=== PATIENT | female | born 1990 | race American Indian/Alaskan Native ===

== ENCOUNTER 2020-03-11 11:33 | Emergency (ER) | payer MEDICAID ==
[2020-03-11 12:23] LABS: BUN/Creatinine Ratio 13; Blood Urea Nitrogen 10 mg/dL (7-17); Calcium 9.7 mg/dL (8.4-10.2); Hemolysis Index 5
[2020-03-11 12:41] LABS: Eosinophils # (Auto) 0.1 K/mm3 (0.0-0.4); Eosinophils % (Auto) 1.7 % (0.0-4.3); Hematocrit 41.6 % (30.3-42.9); Hemoglobin 13.7 gm/dl (10.1-14.3); Lymphocytes # (Auto) 1.1 K/mm3 (1.2-5.4); Lymphocytes % (Auto) 30.1 % (13.4-35.0); Mean Corpuscular HGB Conc 33 % (30-34); Mean Corpuscular Volume 97 fl (79-97); Monocytes # (Auto) 0.4 K/mm3 (0.0-0.8); Monocytes % (Auto) 12.2 % (0.0-7.3); Platelet Count 306 K/mm3 (140-440); Red Blood Count 4.29 M/mm3 (3.65-5.03); Red Cell Distribution Width 13.2 % (13.2-15.2)
--- NOTE | 2020-03-11 12:44 | Emergency Department Report ---
HPI - General Chief Complaint: Psych Time Seen by Provider: 03/11/20 12:34 - HPI HPI: Room 12 The patient is a 29-year-old female present with a chief complaint of suicidal ideation. The patient was being seen by her therapist during the session report wayne told her therapist that she wanted to hurt her self with a knife. Patient acknowledges this but denies any attempts at harming herself. Therapist placed the patient on a 1013 document" she admits to suicidal ideation with plan to stab herself." And sent the patient to the ED for further evaluation ED Past Medical Hx - Past Medical History Previous Medical History?: Yes Hx Hypertension: Yes Additional medical history: cognitive delayed,behavior disorder - Surgical History Past Surgical History?: No - Family History Family history: no significant - Social History Smoking Status: Never Smoker Substance Use Type: None (Denies illicit drug use) - Medications Home Medications: Home Medications Medication Instructions Recorded Confirmed Last Taken Type ARIPiprazole [Aripiprazole] 15 mg PO BID 04/12/16 02/08/20 Unknown History amLODIPine [Norvasc] 5 mg PO DAILY 04/12/16 02/08/20 Unknown History lamoTRIgine [LaMICtal Odt] 50 mg PO QDAY 04/12/16 02/08/20 Unknown History ED Review of Systems ROS: Stated complaint: MH Other details as noted in HPI Constitutional: no symptoms reported Respiratory: no symptoms reported Endocrine: no symptoms reported Psychiatric: suicidal thoughts Physical Exam - Physical Exam Vital Signs: Vital Signs 03/11/20 11:39 Temperature 97.8 F Pulse Rate 80 Respiratory 16 Rate Blood Pressure 154/100 [Right] O2 Sat by Pulse 100 Oximetry Physical Exam: GENERAL: The patient is well-nourished female lying on stretcher not appearing to be in acute distress. [] HEENT: Normocephalic. Atraumatic. Extraocular motions are intact. Patient has moist mucous membranes. NECK: Supple. Trachea midline CHEST/LUNGS: Clear to auscultation. There is no respiratory distress noted. HEART/CARDIOVASCULAR: Regular. There is no tachycardia. There is no gallop rub or murmur. ABDOMEN: Abdomen is soft, nontender. Patient has normal bowel sounds. There is no abdominal distention. SKIN: There is no rash. There is no edema. There is no diaphoresis. NEURO: The patient is awake and alert. The patient is cooperative. The patient has normal speech MUSCULOSKELETAL: There is no evidence of acute injury. ED Course Vital Signs 03/11/20 11:39 Temperature 97.8 F Pulse Rate 80 Respiratory 16 Rate Blood Pressure 154/100 [Right] O2 Sat by Pulse 100 Oximetry ED Medical Decision Making - Lab Data Result diagrams: 03/11/20 11:47 03/11/20 11:47 - Differential Diagnosis Suicidal ideation Critical care attestation.: If time is entered above; I have spent that time in minutes in the direct care of this critically ill patient, excluding procedure time. ED Disposition Clinical Impression: Suicidal ideation Disposition: DC/TX-65 PSY HOSP/PSY UNIT Is pt being admited?: No Does the pt Need Aspirin: No Condition: Stable
[2020-03-12 04:33] LABS: Bacteria,Urine 1+ /HPF (Negative); Bilirubin,Urine NEG (Negative); Blood,Urine MOD (Negative); Color,Urine Yellow (Yellow); Mucus,Urine 1+ /HPF; Protein,Urine <15 mg/dL mg/dL (Negative); Urobilinogen,Urine < 2.0 mg/dL (<2.0)
[2020-03-12 04:40] LABS: Amphetamine Screen,Urine PRESUMPTIVE NEGATIVE; Benzodiazepines Screen,Urine PRESUMPTIVE NEGATIVE; Cannabinoid Screen,Urine PRESUMPTIVE NEGATIVE; Cocaine Screen,Urine PRESUMPTIVE NEGATIVE; Methadone Screen,Urine PRESUMPTIVE NEGATIVE; Opiate Screen,Urine PRESUMPTIVE NEGATIVE
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
[2020-03-12] MEDS: DIVALPROEX DR 125 MG TAB PO SCH ×2 (12:41→21:44)
[2020-03-12] MEDS: clonazePAM 0.5 MG TAB PO SCH ×2 (12:41→21:43)
[2020-03-12] MEDS: risperiDONE 0.25 MG TAB PO SCH ×2 (12:41→21:44)
[2020-03-12] MEDS ORDERED: traZODone 50 MG TAB PO SCH (22:00)
[2020-03-13 10:06] VITALS: BP 154/99
--- NOTE | 2020-03-13 11:30 | Progress Note ---
Subjective - Reason for Consult Consult date: 03/13/20 Reason for consult: homicidal - Chief Complaint Chief complaint: The patient's medical record was reviewed and the patient's progress was reviewed with the nursing staff. The nurse note states the patient is resting quietly on recliner, resp even and non labored, no acute distress noted, no complaints of voiced, no behaviors or s/s of self harm noted, ambulates as needed to restroom without difficulty, able to make needs known, calm and cooperative at this time. During my interview with the patient today, she is lying down. She is a/ox 3. She is calm and cooperative. The patient says "I got a headache and ready to go home" when asked how she was feeling. She says she slept "good." The patient denies SI/HI. She states, "I was just mad." The patient also denies hallucinations of any kind. I spoke with the patient's caregiver, Mrs. Barber about the patient's progress and discharge plan. Informed the caregiver that the patient no longer met criteria for inpatient. She was comfortable with the arrangement. She says Neeta goes through theses episodes where she is impulsive and then she calms right back down. Advised her that if SI/HI are to arise to call crisis hotline, 911 or bring the patient back to the ER REVIEW OF SYSTEMS Constitutional: Negative for weight loss ENT: Negative for stridor Respiratory: Negative for cough or hemoptysis All other systems reviewed and are negative MENTAL STATUS EXAMINATION General Appearance: Dressed appropriately. Behavior: calm and cooperative Mood: depressed Affect and affective range: Congruent with stated mood Thought Process: goal directed Speech: normal tone and pace Thought content Suicidal Ideation: Denies Homicidal Ideation: Denies Hallucinations: Denies Delusions: None elicited Insight and Judgment: Limited Memory/Cognition: Limited Attention: Normal Orientation: Alert, oriented Assessment Bipolar Disorder PLAN D/C 1013 Risperidone 0.25mg po BID Depakote DR 125mg po BID Trazodone 50mg po qhs Klonopin 0.25mg po BID Sitter: Defer to primary Medical: Per primary Disposition: Do not recommend acute inpatient psychiatric treatment. The patient may d/c with caregiver once medically clear. The caregiver understands that if behaviors of self harm or homicidal behaviors return she should seek immediate assistance by calling crisis team, 911 or ER. The business employment specialist to further discuss safety plan The patient is to follow up with primary or outpatient psych in 7 to 14 days upon discharge. Will sign off. Thank you for this consult. Mental Status Exam - Vital signs Last Vital Signs Temp 97.8 F 03/13/20 10:04 Pulse 82 03/13/20 10:04 Resp 20 03/13/20 10:04 BP 154/99 03/13/20 10:04 Pulse Ox 98 03/13/20 10:04
[2020-03-13] MEDS: risperiDONE 0.25 MG TAB PO SCH (11:37)
[2020-03-13] MEDS: clonazePAM 0.5 MG TAB PO SCH (11:37)
[2020-03-13] MEDS: DIVALPROEX DR 125 MG TAB PO SCH (11:37)
== END 2020-03-13 13:44 | disposition home or self-care (01) ==
LOC: ED 11:33
DX: R45.851 Suicidal ideations (principal); I10 Essential (primary) hypertension; Z79.899 Other long term (current) drug therapy
CPT/HCPCS: 36415; 80048; 80307; 80320; 81001; 85025; G0480

== ENCOUNTER 2020-08-25 09:43 | Emergency (ER) | payer MEDICAID ==
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
[2020-08-25 11:31] LABS: Basophils # (Auto) 0.1 K/mm3 (0.0-0.1); Basophils % (Auto) 1.1 % (0.0-1.8); Eosinophils # (Auto) 0.1 K/mm3 (0.0-0.4); Eosinophils % (Auto) 1.8 % (0.0-4.3); Hematocrit 36.6 % (30.3-42.9); Hemoglobin 12.5 gm/dl (10.1-14.3); Lymphocytes # (Auto) 1.4 K/mm3 (1.2-5.4); Lymphocytes % (Auto) 25.7 % (13.4-35.0); Mean Corpuscular HGB Conc 34 % (30-34); Mean Corpuscular Volume 95 fl (79-97); Monocytes # (Auto) 0.5 K/mm3 (0.0-0.8); Monocytes % (Auto) 9.9 % (0.0-7.3); Platelet Count 304 K/mm3 (140-440); Red Blood Count 3.85 M/mm3 (3.65-5.03); Red Cell Distribution Width 12.4 % (13.2-15.2)
[2020-08-25 12:32] LABS: Alanine Aminotransferase 13 units/L (7-56); Albumin 4.4 g/dL (3.9-5); BUN/Creatinine Ratio 14; Blood Urea Nitrogen 13 mg/dL (7-17); Calcium 9.9 mg/dL (8.4-10.2); Hemolysis Index 23
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
[2020-08-25 13:17] LABS: Bilirubin,Urine NEG (Negative); Blood,Urine MOD (Negative); Color,Urine Straw (Yellow); Protein,Urine <15 mg/dL mg/dL (Negative); Urobilinogen,Urine < 2.0 mg/dL (<2.0)
[2020-08-25 13:26] LABS: HCG Qualitative,Urine Negative (Negative)
[2020-08-25 13:34] LABS: Amphetamine Screen,Urine Negative; Benzodiazepines Screen,Urine Negative; Cannabinoid Screen,Urine Negative; Cocaine Screen,Urine Negative; Methadone Screen,Urine Negative
[2020-08-25 15:33] LABS: Opiate Screen,Urine PRESUMPTIVE NEGATIVE
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
[2020-08-26] MEDS: DIVALPROEX DR 125 MG TAB PO SCH ×2 (10:30→22:20)
[2020-08-26] MEDS: risperiDONE 0.25 MG TAB PO SCH ×2 (10:30→22:20)
[2020-08-26] MEDS: traZODone 50 MG TAB PO SCH (22:20)
--- NOTE | 2020-08-27 09:18 | Progress Note ---
Subjective - Reason for Consult Consult date: 08/27/20 Reason for consult: homicidal thoughs - Chief Complaint Chief complaint: The patient was seen today, she is much more calm today. She denies wanting to hurt anybody. She says "I was mad yesterday." She denies hallucinations of any kind. The patient says "I feel better. I just been resting." REVIEW OF SYSTEMS Constitutional: Negative for weight loss ENT: Negative for stridor Respiratory: Negative for cough or hemoptysis All other systems reviewed and are negative MENTAL STATUS EXAMINATION General Appearance and Behavior: Age appropriate, good hygiene, wearing appropriate clothes, good eye contact, calm and cooperative Cooperation: Participating/engaged Psychomotor Behavior: Psychomotor normal Mood: okay Affect and affective range: congruent with mood. Thought Process: Goal directed Thought Content: None Speech: Normal rate, volume and rhythm Intellectual Functioning: Average Suicidal Ideation: Denies Homicidal Ideation: Denies Hallucinations: Denies Delusions: None elicited Impulse Control: Impaired Insight and Judgment: Limited insight and judgment Memory: Limited Attention: Normal Orientation: Alert, oriented. Assessment and Plan (1) Unspecified Mood Disorder Current Visit: Yes Status: Acute Treatment Plan d/c [address] 125mg po BID Risperidone 0.25mg po BID Trazodone 50mg po qhs Sitter: Defer to primary Medical: Per primary Disposition: Recommend acute psychiatric inpatient treatment Will follow. Thank you. Case staffed with Dr. Mc Mental Status Exam - Vital signs Last Vital Signs Temp 98.2 F 08/27/20 07:45 Pulse 95 H 08/27/20 07:45 Resp 18 08/27/20 07:45 BP 128/64 08/27/20 07:45 Pulse Ox 99 08/27/20 07:45
[2020-08-27] MEDS: DIVALPROEX DR 125 MG TAB PO SCH ×2 (11:51→22:08)
[2020-08-27] MEDS: risperiDONE 0.25 MG TAB PO SCH ×2 (11:52→22:08)
[2020-08-27] MEDS: traZODone 50 MG TAB PO SCH (22:08)
[2020-08-28] MEDS: DIVALPROEX DR 125 MG TAB PO SCH ×2 (10:28→21:30)
[2020-08-28] MEDS: risperiDONE 0.25 MG TAB PO SCH ×2 (10:28→21:30)
[2020-08-28] MEDS: traZODone 50 MG TAB PO SCH (21:30)
[2020-08-29] MEDS: risperiDONE 0.25 MG TAB PO SCH ×2 (10:15→21:52)
[2020-08-29] MEDS: DIVALPROEX DR 125 MG TAB PO SCH ×2 (10:16→21:52)
--- NOTE | 2020-08-29 11:33 | Progress Note ---
Subjective - Reason for Consult Consult date: 08/29/20 Reason for consult: MHE Requesting physician: DEBBI GREGORY - Chief Complaint Chief complaint: The patient was seen today, she is much more calm today. She denies wanting to h urt anybody. She says "I was mad yesterday." She denies hallucinations of any kind. The patient says "I feel better. I just been resting." REVIEW OF SYSTEMS Constitutional: Negative for weight loss ENT: Negative for stridor Respiratory: Negative for cough or hemoptysis All other systems reviewed and are negative MENTAL STATUS EXAMINATION General Appearance and Behavior: Age appropriate, good hygiene, wearing appropriate clothes, good eye contact, calm and cooperative Cooperation: Participating/engaged Psychomotor Behavior: Psychomotor normal Mood: okay Affect and affective range: congruent with mood. Thought Process: Goal directed Thought Content: None Speech: Normal rate, volume and rhythm Intellectual Functioning: Average Suicidal Ideation: Denies Homicidal Ideation: Denies Hallucinations: Denies Delusions: None elicited Impulse Control: Impaired Insight and Judgment: Limited insight and judgment Memory: Limited Attention: Normal Orientation: Alert, oriented. Assessment and Plan (1) Unspecified Mood Disorder Current Visit: Yes Status: Acute Treatment Plan MEDICATIONS: Risks, benefits and alternatives of medications discussed with the patient, questions answered and consent obtained from patient. PSYCHOTHERAPY: Supportive psychotherapy provided MEDICAL: Per primary team DELIRIUM PRECAUTIONS: Please re-orient patient frequently, keep lights on during the day, and minimize benzodiazepines and opiates as these medications could worsen patient's confusion. CLIENT STRATEGIST: DISPOSITION: Do? Do Not Recommend acute inpatient psychiatric hospitalization at this time. Case discussed with Dr. Mc who agrees with current disposition LEGAL STATUS: 1013 FOLLOW-UP: Will follow Thank you for the consult. Please contact with any questions and/or concerns. Mental Status Exam - Vital signs Last Vital Signs Temp 97.9 F 08/29/20 08:48 Pulse 78 08/29/20 08:48 Resp 18 08/29/20 09:10 BP 123/78 08/29/20 08:48 Pulse Ox 98 08/29/20 08:48
[2020-08-29] MEDS: traZODone 50 MG TAB PO SCH (21:52)
[2020-08-30] MEDS: risperiDONE 0.25 MG TAB PO SCH ×2 (11:41→21:46)
[2020-08-30] MEDS: DIVALPROEX DR 125 MG TAB PO SCH ×2 (11:41→21:46)
[2020-08-30] MEDS: traZODone 50 MG TAB PO SCH (21:46)
[2020-08-31] MEDS: risperiDONE 0.25 MG TAB PO SCH ×2 (09:49→22:15)
[2020-08-31] MEDS: DIVALPROEX DR 125 MG TAB PO SCH ×2 (09:49→22:14)
[2020-08-31] MEDS: traZODone 50 MG TAB PO SCH (22:14)
[2020-09-01] MEDS: risperiDONE 0.25 MG TAB PO SCH ×2 (10:05→22:22)
[2020-09-01] MEDS: DIVALPROEX DR 125 MG TAB PO SCH ×2 (10:05→22:22)
[2020-09-01] MEDS: traZODone 50 MG TAB PO SCH (22:22)
[2020-09-02] MEDS: DIVALPROEX DR 125 MG TAB PO SCH ×2 (10:24→22:00)
[2020-09-02] MEDS: risperiDONE 0.25 MG TAB PO SCH ×2 (10:24→22:00)
[2020-09-02] MEDS: traZODone 50 MG TAB PO SCH (22:00)
[2020-09-03] MEDS: risperiDONE 0.25 MG TAB PO SCH ×2 (11:39→21:37)
[2020-09-03] MEDS: DIVALPROEX DR 125 MG TAB PO SCH ×2 (11:39→21:37)
[2020-09-03] MEDS: traZODone 50 MG TAB PO SCH (21:37)
[2020-09-04] MEDS: risperiDONE 0.25 MG TAB PO SCH ×2 (10:25→22:29)
[2020-09-04] MEDS: DIVALPROEX DR 125 MG TAB PO SCH ×2 (10:25→22:29)
[2020-09-04] MEDS: traZODone 50 MG TAB PO SCH (22:29)
[2020-09-05] MEDS: DIVALPROEX DR 125 MG TAB PO SCH ×2 (09:44→22:39)
[2020-09-05] MEDS: risperiDONE 0.25 MG TAB PO SCH ×2 (09:44→22:39)
[2020-09-05] MEDS: traZODone 50 MG TAB PO SCH (22:39)
[2020-09-06] MEDS: risperiDONE 0.25 MG TAB PO SCH ×2 (11:00→22:56)
[2020-09-06] MEDS: DIVALPROEX DR 125 MG TAB PO SCH ×2 (11:00→22:56)
[2020-09-06] MEDS: traZODone 50 MG TAB PO SCH (22:56)
[2020-09-07] MEDS: DIVALPROEX DR 125 MG TAB PO SCH ×2 (10:14→21:31)
[2020-09-07] MEDS: risperiDONE 0.25 MG TAB PO SCH ×2 (10:14→21:31)
[2020-09-07] MEDS: traZODone 50 MG TAB PO SCH (21:31)
[2020-09-08] MEDS: DIVALPROEX DR 125 MG TAB PO SCH ×2 (10:40→21:54)
[2020-09-08] MEDS: risperiDONE 0.25 MG TAB PO SCH ×2 (10:40→21:54)
[2020-09-08] MEDS: traZODone 50 MG TAB PO SCH (21:54)
[2020-09-09] MEDS: DIVALPROEX DR 125 MG TAB PO SCH ×3 (10:35→23:03)
[2020-09-09] MEDS: risperiDONE 0.25 MG TAB PO SCH ×3 (10:35→23:04)
[2020-09-09] MEDS: traZODone 50 MG TAB PO SCH ×2 (20:46→23:04)
[2020-09-10] MEDS: DIVALPROEX DR 125 MG TAB PO SCH ×2 (10:15→22:00)
[2020-09-10] MEDS: risperiDONE 0.25 MG TAB PO SCH ×2 (10:15→22:00)
[2020-09-10] MEDS: traZODone 50 MG TAB PO SCH (22:00)
[2020-09-11] MEDS: DIVALPROEX DR 125 MG TAB PO SCH (10:18)
[2020-09-11] MEDS: risperiDONE 0.25 MG TAB PO SCH (10:18)
[2020-09-12] MEDS: risperiDONE 0.25 MG TAB PO SCH ×3 (05:53→22:45)
[2020-09-12] MEDS: DIVALPROEX DR 125 MG TAB PO SCH ×3 (05:53→22:45)
[2020-09-12] MEDS: traZODone 50 MG TAB PO SCH ×2 (05:53→22:45)
[2020-09-13] MEDS ORDERED: diphenhydrAMINE 25 MG CAP PO ONE (09:31)
[2020-09-13] MEDS: DIVALPROEX DR 125 MG TAB PO SCH ×2 (09:39→22:33)
[2020-09-13] MEDS: risperiDONE 0.25 MG TAB PO SCH ×2 (09:39→22:33)
[2020-09-13] MEDS: traZODone 50 MG TAB PO SCH (22:33)
[2020-09-14] MEDS: risperiDONE 0.25 MG TAB PO SCH ×2 (00:02→11:45)
[2020-09-14] MEDS: DIVALPROEX DR 125 MG TAB PO SCH ×2 (11:45→21:30)
[2020-09-14] MEDS: traZODone 50 MG TAB PO SCH (21:30)
[2020-09-15] MEDS: traZODone 50 MG TAB PO SCH (21:51)
[2020-09-15] MEDS: risperiDONE 0.25 MG TAB PO SCH (21:51)
[2020-09-15] MEDS: DIVALPROEX DR 125 MG TAB PO SCH (21:51)
[2020-09-16] MEDS: traZODone 50 MG TAB PO SCH (23:52)
[2020-09-16] MEDS: risperiDONE 0.25 MG TAB PO SCH (23:56)
[2020-09-16] MEDS: DIVALPROEX DR 125 MG TAB PO SCH (23:56)
[2020-09-17] MEDS: risperiDONE 0.25 MG TAB PO SCH (23:01)
[2020-09-17] MEDS: traZODone 50 MG TAB PO SCH (23:01)
[2020-09-17] MEDS: DIVALPROEX DR 125 MG TAB PO SCH (23:01)
[2020-09-18] MEDS: DIVALPROEX DR 125 MG TAB PO SCH (10:30)
[2020-09-18] MEDS: risperiDONE 0.25 MG TAB PO SCH (10:30)
[2020-09-19] MEDS: DIVALPROEX DR 125 MG TAB PO SCH (10:50)
[2020-09-19] MEDS: risperiDONE 0.25 MG TAB PO SCH (10:50)
[2020-09-20] MEDS: risperiDONE 0.25 MG TAB PO SCH ×3 (09:42→22:53)
[2020-09-20] MEDS: DIVALPROEX DR 125 MG TAB PO SCH ×3 (09:42→22:53)
[2020-09-20] MEDS: traZODone 50 MG TAB PO SCH ×2 (09:42→22:53)
[2020-09-21] MEDS: risperiDONE 0.25 MG TAB PO SCH ×2 (11:31→22:18)
[2020-09-21] MEDS: DIVALPROEX DR 125 MG TAB PO SCH ×2 (11:31→22:18)
[2020-09-21] MEDS: traZODone 50 MG TAB PO SCH (22:18)
[2020-09-22] MEDS: traZODone 50 MG TAB PO SCH (23:15)
[2020-09-22] MEDS: risperiDONE 0.25 MG TAB PO SCH (23:16)
[2020-09-22] MEDS: DIVALPROEX DR 125 MG TAB PO SCH (23:17)
[2020-09-23] MEDS ORDERED: DIVALPROEX DR 125 MG TAB ONE (13:06)
[2020-09-24] MEDS: DIVALPROEX DR 125 MG TAB PO SCH ×4 (11:49→23:47)
[2020-09-24] MEDS: risperiDONE 0.25 MG TAB PO SCH ×3 (11:49→23:46)
[2020-09-24] MEDS: traZODone 50 MG TAB PO SCH ×2 (22:45→23:45)
[2020-09-25] MEDS: DIVALPROEX DR 125 MG TAB PO SCH ×2 (10:57→22:30)
[2020-09-25] MEDS: risperiDONE 0.25 MG TAB PO SCH ×2 (10:57→22:30)
[2020-09-25] MEDS: traZODone 50 MG TAB PO SCH (22:30)
[2020-09-26] MEDS: risperiDONE 0.25 MG TAB PO SCH ×2 (10:15→22:33)
[2020-09-26] MEDS: DIVALPROEX DR 125 MG TAB PO SCH ×2 (10:15→22:33)
--- NOTE | 2020-09-26 19:47 | Event Note ---
Date: 09/26/20 The patient was evaluated in the emergency department for symptoms described in the history of present illness. He/she was evaluated in the context of the global COVID-19 pandemic, which necessitated consideration that the patient might be at risk for infection with the virus that causes COVID-19. Institutional protocols and algorithms that pertain to the evaluation of patients at risk for COVID-19 are in a state of rapid change based on information released by regulatory bodies including the CDC and federal and state organizations. These policies and algorithms were followed during the patient's care in the emergency department. Please note that these policies, procedures and recommendations changed on a rapid basis. Charge nurse has brought this patient to my attention, as she is reportedly ready for discharge. Patient was medically cleared during her initial ER evaluation. Psychiatric team recommended no acute inpatient psychiatric hospitalization. Patient appears to have a history of intellectual disability/delay, and is reportedly a [place] the [place]. Outpatient residential accommodations have been made for this patient, and the psychiatric team will refill her medications. The patient is resting comfortably in stretcher at this time, and in no acute distress. She denies physical pain at this time. She is recently had a negative Covid test. Patient does not appear to have an emergent medical condition present at this time which would preclude discharge. She can follow-up with an outpatient primary care doctor and/or therapist Vital Signs 08/25/20 08/25/20 08/25/20 10:15 13:10 20:15 Temperature 97.6 F 98 F 97.6 F Pulse Rate 83 79 77 Respiratory 18 16 18 Rate Blood Pressure 107/66 Blood Pressure 117/75 108/65 [Right] O2 Sat by Pulse 100 100 99 Oximetry 08/26/20 08/26/20 08/26/20 03:45 08:38 09:29 Temperature 99.3 F 98.0 F Pulse Rate 79 77 Respiratory 18 20 18 Rate Blood Pressure Blood Pressure 100/55 135/75 [Right] O2 Sat by Pulse 99 99 Oximetry 08/26/20 08/26/20 08/26/20 15:09 20:00 22:37 Temperature 98 F Pulse Rate 81 87 Respiratory 18 18 18 Rate Blood Pressure Blood Pressure 102/70 133/78 [Right] O2 Sat by Pulse 97 98 Oximetry 08/27/20 08/27/20 08/27/20 01:17 07:45 13:05 Temperature 98.0 F 98.2 F 97.7 F Pulse Rate 80 95 H 99 H Respiratory 20 18 18 Rate Blood Pressure Blood Pressure 130/70 128/64 118/70 [Right] O2 Sat by Pulse 99 99 100 Oximetry 08/27/20 08/28/20 08/28/20 19:30 08:00 17:00 Temperature 98 F 98.3 F 97.7 F Pulse Rate 91 H 99 H 80 Respiratory 16 Rate Blood Pressure Blood Pressure 133/81 139/79 133/86 [Right] O2 Sat by Pulse 98 99 Oximetry 08/28/20 08/29/20 08/29/20 20:25 02:23 08:48 Temperature 98.1 F 98.1 F 97.9 F Pulse Rate 76 71 78 Respiratory 18 18 20 Rate Blood Pressure Blood Pressure 125/83 126/8 123/78 [Right] O2 Sat by Pulse 99 98 98 Oximetry 08/29/20 08/29/20 08/29/20 09:10 12:39 20:15 Temperature 98.7 F Pulse Rate 86 86 Respiratory 18 18 16 Rate Blood Pressure Blood Pressure 109/60 120/91 [Right] O2 Sat by Pulse 98 98 Oximetry 08/30/20 08/30/20 08/30/20 08:30 16:53 20:23 Temperature 98.2 F 97.5 F L 97.9 F Pulse Rate 68 100 H 80 Respiratory 18 20 16 Rate Blood Pressure Blood Pressure 132/76 130/81 156/69 [Right] O2 Sat by Pulse 98 100 100 Oximetry 08/31/20 08/31/20 08/31/20 09:08 09:39 21:26 Temperature 98.0 F 98.0 F Pulse Rate 70 72 Respiratory 16 20 18 Rate Blood Pressure Blood Pressure 119/64 111/58 [Right] O2 Sat by Pulse 100 98 100 Oximetry 09/01/20 09/01/20 09/01/20 02:35 06:20 10:31 Temperature 99.1 F 97.2 F L Pulse Rate 60 78 78 Respiratory 18 16 17 Rate Blood Pressure Blood Pressure 126/49 125/71 136/79 [Right] O2 Sat by Pulse 100 100 100 Oximetry 09/01/20 09/02/20 09/02/20 19:50 08:49 19:25 Temperature 98.9 F 98.2 F Pulse Rate 80 77 Respiratory 19 20 18 Rate Blood Pressure Blood Pressure 122/72 135/80 [Right] O2 Sat by Pulse 99 98 99 Oximetry 09/03/20 09/03/20 09/04/20 08:01 19:30 01:14 Temperature 97.8 F 97.9 F 98.4 F Pulse Rate 87 89 75 Respiratory 20 18 18 Rate Blood Pressure Blood Pressure 128/65 139/92 144/74 [Right] O2 Sat by Pulse 98 98 100 Oximetry 09/04/20 09/04/20 09/04/20 08:06 08:48 13:09 Temperature 98.6 F 98.0 F Pulse Rate 81 70 Respiratory 18 18 18 Rate Blood Pressure Blood Pressure 102/63 131/68 [Right] O2 Sat by Pulse 100 100 Oximetry 09/04/20 09/05/20 09/05/20 20:40 05:12 20:26 Temperature 98.2 F 98.0 F 97.7 F Pulse Rate 73 69 72 Respiratory 18 18 18 Rate Blood Pressure Blood Pressure 138/77 130/69 138/83 [Right] O2 Sat by Pulse 100 99 100 Oximetry 09/06/20 09/06/20 09/07/20 01:34 11:11 08:00 Temperature 97.7 F 97.9 F 98.0 F Pulse Rate 89 86 84 Respiratory 18 20 20 Rate Blood Pressure Blood Pressure 130/56 142/83 138/84 [Right] O2 Sat by Pulse 100 99 100 Oximetry 09/07/20 09/08/20 09/08/20 20:11 10:38 14:26 Temperature 98.1 F 97.3 F L 97.3 F L Pulse Rate 86 76 70 Respiratory 20 18 18 Rate Blood Pressure 143/98 152/93 Blood Pressure 152/93 [Right] O2 Sat by Pulse 99 99 100 Oximetry 09/09/20 09/09/20 09/10/20 08:57 19:46 20:00 Temperature 98.4 F 98.0 F 98.2 F Pulse Rate 69 60 69 Respiratory 16 16 18 Rate Blood Pressure 122/74 153/90 Blood Pressure 152/93 [Right] O2 Sat by Pulse 100 100 99 Oximetry 09/11/20 09/11/20 09/11/20 08:56 10:20 20:10 Temperature 97.4 F L 97.4 F L 98.6 F Pulse Rate 65 71 77 Respiratory 16 16 16 Rate Blood Pressure 132/81 126/88 Blood Pressure 132/81 [Right] O2 Sat by Pulse 100 100 99 Oximetry 09/12/20 09/12/20 09/12/20 07:53 19:31 22:00 Temperature 98.0 F 97.3 F L 97.7 F Pulse Rate 67 72 79 Respiratory 18 15 18 Rate Blood Pressure 140/82 148/89 Blood Pressure 148/89 [Right] O2 Sat by Pulse 100 99 99 Oximetry 09/13/20 09/13/20 09/13/20 07:59 10:18 19:17 Temperature 97.9 F 98.1 F Pulse Rate 77 73 Respiratory 18 16 Rate Blood Pressure 137/92 130/83 Blood Pressure 137/92 [Right] O2 Sat by Pulse 99 100 Oximetry 09/14/20 09/14/20 09/14/20 07:30 07:33 19:42 Temperature 97.6 F 97.6 F 98.5 F Pulse Rate 82 77 73 Respiratory 18 18 18 Rate Blood Pressure 121/84 143/80 Blood Pressure 121/84 [Right] O2 Sat by Pulse 98 100 100 Oximetry 09/15/20 09/15/20 09/15/20 09:21 15:11 19:49 Temperature 97.7 F 97.7 F 98.1 F Pulse Rate 84 85 Respiratory 16 16 16 Rate Blood Pressure 141/84 Blood Pressure 151/91 [Right] O2 Sat by Pulse 100 100 Oximetry 09/15/20 09/16/20 09/16/20 22:00 08:54 19:45 Temperature 98.1 F 98.1 F 98.0 F Pulse Rate 89 76 86 Respiratory 18 16 16 Rate Blood Pressure 148/84 153/98 Blood Pressure 141/84 [Right] O2 Sat by Pulse 97 100 100 Oximetry 09/17/20 09/17/20 09/17/20 09:13 19:33 20:00 Temperature 98.0 F 98.0 F 98.2 F Pulse Rate 93 H 79 78 Respiratory 16 16 18 Rate Blood Pressure 120/83 153/96 Blood Pressure 158/93 [Right] O2 Sat by Pulse 100 99 98 Oximetry 09/18/20 09/18/20 09/18/20 08:40 10:01 20:11 Temperature 98.4 F 98.4 F 98.5 F Pulse Rate 75 76 76 Respiratory 18 18 16 Rate Blood Pressure 140/94 151/99 Blood Pressure 140/94 [Right] O2 Sat by Pulse 96 98 100 Oximetry 09/19/20 09/20/20 09/20/20 20:13 09:41 20:00 Temperature 97.9 F 97.9 F 98.5 F Pulse Rate 76 72 77 Respiratory 16 16 16 Rate Blood Pressure 157/89 140/90 Blood Pressure 147/101 [Right] O2 Sat by Pulse 98 100 100 Oximetry 09/21/20 09/21/20 09/24/20 09:20 20:00 14:21 Temperature 97.9 F 98.4 F 98.3 F Pulse Rate 74 73 79 Respiratory 16 15 16 Rate Blood Pressure 148/96 Blood Pressure 144/102 154/95 [Right] O2 Sat by Pulse 100 99 Oximetry 09/24/20 09/25/20 22:00 10:27 Temperature 97.8 F 97.9 F Pulse Rate 75 75 Respiratory 16 18 Rate Blood Pressure Blood Pressure 149/99 142/91 [Right] O2 Sat by Pulse 98 100 Oximetry Lab Results 08/25/20 08/25/20 08/25/20 Range/Units 11:20 11:20 11:20 WBC 5.4 (4.5-11.0) K/mm3 RBC 3.85 (3.65-5.03) M/mm3 Hgb 12.5 (10.1-14.3) gm/dl Hct 36.6 (30.3-42.9) % MCV 95 (79-97) fl MCH 33 H (28-32) pg MCHC 34 (30-34) % RDW 12.4 L (13.2-15.2) % Plt Count 304 (140-440) K/mm3 Lymph % (Auto) 25.7 (13.4-35.0) % [place] % (Auto) 9.9 H (0.0-7.3) % Eos % (Auto) 1.8 (0.0-4.3) % Baso % (Auto) 1.1 (0.0-1.8) % Lymph # (Auto) 1.4 (1.2-5.4) K/mm3 [place] # (Auto) 0.5 (0.0-0.8) K/mm3 Eos # (Auto) 0.1 (0.0-0.4) K/mm3 Baso # (Auto) 0.1 (0.0-0.1) K/mm3 Seg Neutrophils % 61.5 (40.0-70.0) % Seg Neutrophils # 3.3 (1.8-7.7) K/mm3 Sodium (137-145) mmol/L Potassium (3.6-5.0) mmol/L Chloride (98-107) mmol/L Carbon Dioxide (22-30) mmol/L Anion Gap mmol/L BUN (7-17) mg/dL Creatinine (0.6-1.2) mg/dL Estimated GFR ml/min BUN/Creatinine Ratio % Glucose (65-100) mg/dL Calcium (8.4-10.2) mg/dL Total Bilirubin (0.1-1.2) mg/dL AST (5-40) units/L ALT (7-56) units/L Alkaline Phosphatase (35-129) units/L Total Protein (6.3-8.2) g/dL Albumin (3.9-5) g/dL Albumin/Globulin Ratio % Urine Color (Yellow) Urine Turbidity (Clear) Urine pH (5.0-7.0) Ur Specific [place] (1.003-1.030) Urine Protein (Negative) mg/dL Urine Glucose (UA) (Negative) mg/dL Urine Ketones (Negative) mg/dL Urine Blood (Negative) Urine Nitrite (Negative) Urine Bilirubin (Negative) Urine Urobilinogen (<2.0) mg/dL Ur Leukocyte Esterase (Negative) Urine WBC (Auto) (0.0-6.0) /HPF Urine RBC (Auto) (0.0-6.0) /HPF U Epithel Cells (Auto) (0-13.0) /HPF Urine HCG, Qual (Negative) Salicylates < 0.3 L (2.8-20.0) mg/dL Urine Opiates Screen Urine Methadone Screen Acetaminophen 5.0 L (10.0-30.0) ug/mL Ur Barbiturates Screen Ur Phencyclidine Scrn Ur Amphetamines Screen U Benzodiazepines Scrn Urine Cocaine Screen U Marijuana (THC) Screen Drugs of Abuse Note Plasma/Serum Alcohol (0-0.07) % Coronavirus (PCR) (Negative) 08/25/20 08/25/20 08/25/20 Range/Units 11:20 11:29 13:12 WBC (4.5-11.0) K/mm3 RBC (3.65-5.03) M/mm3 Hgb (10.1-14.3) gm/dl Hct (30.3-42.9) % MCV (79-97) fl MCH (28-32) pg MCHC (30-34) % RDW (13.2-15.2) % Plt Count (140-440) K/mm3 Lymph % (Auto) (13.4-35.0) % [place] % (Auto) (0.0-7.3) % Eos % (Auto) (0.0-4.3) % Baso % (Auto) (0.0-1.8) % Lymph # (Auto) (1.2-5.4) K/mm3 [place] # (Auto) (0.0-0.8) K/mm3 Eos # (Auto) (0.0-0.4) K/mm3 Baso # (Auto) (0.0-0.1) K/mm3 Seg Neutrophils % (40.0-70.0) % Seg Neutrophils # (1.8-7.7) K/mm3 Sodium 137 (137-145) mmol/L Potassium 4.0 (3.6-5.0) mmol/L Chloride 98.8 (98-107) mmol/L Carbon Dioxide 33 H (22-30) mmol/L Anion Gap 9 mmol/L BUN 13 (7-17) mg/dL Creatinine 0.9 (0.6-1.2) mg/dL Estimated GFR > 60 ml/min BUN/Creatinine Ratio 14 % Glucose 75 (65-100) mg/dL Calcium 9.9 (8.4-10.2) mg/dL Total Bilirubin 0.20 (0.1-1.2) mg/dL AST 23 (5-40) units/L ALT 13 (7-56) units/L Alkaline Phosphatase 44 (35-129) units/L Total Protein 7.6 (6.3-8.2) g/dL Albumin 4.4 (3.9-5) g/dL Albumin/Globulin Ratio 1.4 % Urine Color (Yellow) Urine Turbidity (Clear) Urine pH (5.0-7.0) Ur Specific [place] (1.003-1.030) Urine Protein (Negative) mg/dL Urine Glucose (UA) (Negative) mg/dL Urine Ketones (Negative) mg/dL Urine Blood (Negative) Urine Nitrite (Negative) Urine Bilirubin (Negative) Urine Urobilinogen (<2.0) mg/dL Ur Leukocyte Esterase (Negative) Urine WBC (Auto) (0.0-6.0) /HPF Urine RBC (Auto) (0.0-6.0) /HPF U Epithel Cells (Auto) (0-13.0) /HPF Urine HCG, Qual (Negative) Salicylates (2.8-20.0) mg/dL Urine Opiates Screen Presumptive negative Urine Methadone Screen Negative Acetaminophen (10.0-30.0) ug/mL Ur Barbiturates Screen Negative Ur Phencyclidine Scrn Negative Ur Amphetamines Screen Negative U Benzodiazepines Scrn Negative Urine Cocaine Screen Negative U Marijuana (THC) Screen Negative Drugs of Abuse Note Disclamer Plasma/Serum Alcohol < 0.01 (0-0.07) % Coronavirus (PCR) (Negative) 08/25/20 08/26/20 08/31/20 Range/Units Unknown 08:15 09:48 WBC (4.5-11.0) K/mm3 RBC (3.65-5.03) M/mm3 Hgb (10.1-14.3) gm/dl Hct (30.3-42.9) % MCV (79-97) fl MCH (28-32) pg MCHC (30-34) % RDW (13.2-15.2) % Plt Count (140-440) K/mm3 Lymph % (Auto) (13.4-35.0) % [place] % (Auto) (0.0-7.3) % Eos % (Auto) (0.0-4.3) % Baso % (Auto) (0.0-1.8) % Lymph # (Auto) (1.2-5.4) K/mm3 [place] # (Auto) (0.0-0.8) K/mm3 Eos # (Auto) (0.0-0.4) K/mm3 Baso # (Auto) (0.0-0.1) K/mm3 Seg Neutrophils % (40.0-70.0) % Seg Neutrophils # (1.8-7.7) K/mm3 Sodium (137-145) mmol/L Potassium (3.6-5.0) mmol/L Chloride (98-107) mmol/L Carbon Dioxide (22-30) mmol/L Anion Gap mmol/L BUN (7-17) mg/dL Creatinine (0.6-1.2) mg/dL Estimated GFR ml/min BUN/Creatinine Ratio % Glucose (65-100) mg/dL Calcium (8.4-10.2) mg/dL Total Bilirubin (0.1-1.2) mg/dL AST (5-40) units/L ALT (7-56) units/L Alkaline Phosphatase (35-129) units/L Total Protein (6.3-8.2) g/dL Albumin (3.9-5) g/dL Albumin/Globulin Ratio % Urine Color Straw (Yellow) Urine Turbidity Clear (Clear) Urine pH 7.0 (5.0-7.0) Ur Specific [place] 1.004 (1.003-1.030) Urine Protein <15 mg/dl (Negative) mg/dL Urine Glucose (UA) Neg (Negative) mg/dL Urine Ketones Neg (Negative) mg/dL Urine Blood Mod (Negative) Urine Nitrite Neg (Negative) Urine Bilirubin Neg (Negative) Urine Urobilinogen < 2.0 (<2.0) mg/dL Ur Leukocyte Esterase Neg (Negative) Urine WBC (Auto) 3.0 (0.0-6.0) /HPF Urine RBC (Auto) 2.0 (0.0-6.0) /HPF U Epithel Cells (Auto) 3.0 (0-13.0) /HPF Urine HCG, Qual Negative (Negative) Salicylates (2.8-20.0) mg/dL Urine Opiates Screen Urine Methadone Screen Acetaminophen (10.0-30.0) ug/mL Ur Barbiturates Screen Ur Phencyclidine Scrn Ur Amphetamines Screen U Benzodiazepines Scrn Urine Cocaine Screen U Marijuana (THC) Screen Drugs of Abuse Note Plasma/Serum Alcohol (0-0.07) % Coronavirus (PCR) Positive A Negative (Negative) 09/25/20 Range/Units Unknown WBC (4.5-11.0) K/mm3 RBC (3.65-5.03) M/mm3 Hgb (10.1-14.3) gm/dl Hct (30.3-42.9) % MCV (79-97) fl MCH (28-32) pg MCHC (30-34) % RDW (13.2-15.2) % Plt Count (140-440) K/mm3 Lymph % (Auto) (13.4-35.0) % [place] % (Auto) (0.0-7.3) % Eos % (Auto) (0.0-4.3) % Baso % (Auto) (0.0-1.8) % Lymph # (Auto) (1.2-5.4) K/mm3 [place] # (Auto) (0.0-0.8) K/mm3 Eos # (Auto) (0.0-0.4) K/mm3 Baso # (Auto) (0.0-0.1) K/mm3 Seg Neutrophils % (40.0-70.0) % Seg Neutrophils # (1.8-7.7) K/mm3 Sodium (137-145) mmol/L Potassium (3.6-5.0) mmol/L Chloride (98-107) mmol/L Carbon Dioxide (22-30) mmol/L Anion Gap mmol/L BUN (7-17) mg/dL Creatinine (0.6-1.2) mg/dL Estimated GFR ml/min BUN/Creatinine Ratio % Glucose (65-100) mg/dL Calcium (8.4-10.2) mg/dL Total Bilirubin (0.1-1.2) mg/dL AST (5-40) units/L ALT (7-56) units/L Alkaline Phosphatase (35-129) units/L Total Protein (6.3-8.2) g/dL Albumin (3.9-5) g/dL Albumin/Globulin Ratio % Urine Color (Yellow) Urine Turbidity (Clear) Urine pH (5.0-7.0) Ur Specific [place] (1.003-1.030) Urine Protein (Negative) mg/dL Urine Glucose (UA) (Negative) mg/dL Urine Ketones (Negative) mg/dL Urine Blood (Negative) Urine Nitrite (Negative) Urine Bilirubin (Negative) Urine Urobilinogen (<2.0) mg/dL Ur Leukocyte Esterase (Negative) Urine WBC (Auto) (0.0-6.0) /HPF Urine RBC (Auto) (0.0-6.0) /HPF U Epithel Cells (Auto) (0-13.0) /HPF Urine HCG, Qual (Negative) Salicylates (2.8-20.0) mg/dL Urine Opiates Screen Urine Methadone Screen Acetaminophen (10.0-30.0) ug/mL Ur Barbiturates Screen Ur Phencyclidine Scrn Ur Amphetamines Screen U Benzodiazepines Scrn Urine Cocaine Screen U Marijuana (THC) Screen Drugs of Abuse Note Plasma/Serum Alcohol (0-0.07) % Coronavirus (PCR) Negative (Negative)
[2020-09-26] MEDS: traZODone 50 MG TAB PO SCH (22:33)
[2020-09-27] MEDS: DIVALPROEX DR 125 MG TAB PO SCH ×2 (10:48→23:01)
[2020-09-27] MEDS: risperiDONE 0.25 MG TAB PO SCH ×2 (10:48→23:01)
[2020-09-27] MEDS: traZODone 50 MG TAB PO SCH (23:01)
[2020-09-28] MEDS: DIVALPROEX DR 125 MG TAB PO SCH (10:45)
[2020-09-28] MEDS: risperiDONE 0.25 MG TAB PO SCH (10:45)
[2020-09-29] MEDS: DIVALPROEX DR 125 MG TAB PO SCH ×3 (11:00→23:17)
[2020-09-29] MEDS: risperiDONE 0.25 MG TAB PO SCH ×3 (11:00→23:17)
[2020-09-29] MEDS: traZODone 50 MG TAB PO SCH ×2 (19:50→23:17)
[2020-10-01] MEDS: traZODone 50 MG TAB PO SCH
[2020-10-01] MEDS: DIVALPROEX DR 125 MG TAB PO SCH ×3 (12:52→12:53)
[2020-10-01] MEDS: risperiDONE 0.25 MG TAB PO SCH ×3 (12:52→12:54)
[2020-10-02 03:23] VITALS: BP 150/109
[2020-10-02] MEDS ORDERED: risperiDONE 0.25 MG TAB ONE (09:35)
== END 2020-10-03 14:20 | disposition home or self-care (01) ==
LOC: ED 09:43
DX: F23 Brief psychotic disorder (principal); R45.850 Homicidal ideations; I10 Essential (primary) hypertension; Z79.899 Other long term (current) drug therapy; Z20.822 Contact with and (suspected) exposure to COVID-19
CPT/HCPCS: 36415; 80053; 80307; 81001; 81025; 85025; 99285; U0003; 80320; G0480